=== PATIENT | male | born 1960 | race Caucasian/White ===

== ENCOUNTER 2024-09-18 19:25 | Emergency (ER) | payer OTHER, SELFPAY ==
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
[2024-09-18 19:58] VITALS: BP 164/82; PULSE 95; RESP 17; TEMP 36.7; O2SAT 97; BMI 32.3
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
[2024-09-18 23:36] VITALS: BP 135/85; PULSE 92; O2SAT 94
== END 2024-09-18 23:30 | disposition home or self-care (01) ==
PROVIDERS: Emergency Provider Physician Assistant; PCP Family Medicine
DX: S20.219A Contusion of unspecified front wall of thorax, initial encounter (principal); F17.220 Nicotine dependence, chewing tobacco, uncomplicated; V89.2XXA Person injured in unspecified motor-vehicle accident, traffic, initial encounter
CPT/HCPCS: 71101; 99283